=== PATIENT | female | born 1980 ===

== ENCOUNTER 2024-01-12 00:33 | Day surgery (SDC) | payer OTHER, SELFPAY ==
--- NOTE | 2024-01-03 07:21 | PM.HPGS ---
History of Present Illness History of Present Illness Consent: Risks, benefits, and alternatives have been discussed and questions answered. Patient agrees to proceed with procedure. Chief complaint: left kidney stone Narrative: Eva Rosa is a 43 year old female who is an inmate at [facility]. She had a recent renal ultrasound that suggested bilateral renal calculi. KUB showed a 3 mm calcified stone in her right kidney and 8 mm calcified stone in her left kidney. After discussion of therapeutic options she is elected for left ESWL. She is aware of the risks including, but not limited to, adverse cardiopulmonary events, need for additional procedures, hematuria and perinephric hematoma. Review of Systems Review of Systems: All systems reviewed & are unremarkable except as noted in HPI and below Exam Const: General: no acute distress Resp: Effort & Inspection: normal respiratory effort GI: Inspection: non-distended GI Palp: No abdominal tenderness and No Guarding due to palpation present (GI) Auscultation: normal bowel sounds Assessment and Plan Assessment and plan (1) Bilateral kidney stones: Code(s): N20.0 - Calculus of kidney Status: Acute Assessment and Plan: Left ESWL
[2024-01-03 12:39] VITALS: BMI 29.8
--- NOTE | 2024-01-03 12:59 | PC.NURSE ---
Addendum entered by Nathan Nguyen RN 01/03/24 16:48: Also need BMP prior to surgery due to diuretic use. Notified Bryanna Monet. Original Note: Report to entrance [address] to right of the green pavilion located off [facility], at time _0600_ on date _[id number]_. Planned Procedure Time: _07_. Time changes happen often and if your time is changed the preop area will call you the afternoon before. - You and your visitor will be asked to self-screen and do not enter if you have any COVID symptoms. - A mask is optional within the hospital at this time. Patients may have clear liquids (water, carbonated beverages, clear teas, apple juice) until 3 hours prior to surgery with a maximum of 20 ounces. - No food from midnight until time of surgery Take the following medications with a SIP of water the morning of surgery: ___Carvedilol DO NOT STOP ANY OF YOUR OTHER PRESCRIPTION MEDICATIONS PRIOR TO SURGERY ?EXCEPT THE FOLLOWING Medications to discontinue per physician ____None Date to take last dose Please no make-up, nail nauruan, hairspray, perfume, deodorant, or body powder the day of surgery. No jewelry (including any body piercings) or valuables the day of surgery, leave them at home. Please take a shower or bath the night before, or the morning of, surgery with an antibacterial soap. Wear comfortable, loose fitting clothing. - Jewelry must be removed prior to entering the operating room. Rings and piercings that are not removed may be cut off. - The hospital will not accept responsibility for valuables. - Please leave all valuables, including medications, at home the day of surgery. If you are going home after surgery, a licensed water truck driver must drive you home. - NO public transportation without another adult if you receive anesthesia. - We recommend that an adult stay with you for 24 hours following discharge. - We also recommend that you do not drive, make important decision, drink alcoholic beverages, or take any drugs that were not prescribed by your health care provider for at least 24 hours after your discharge time. Follow any additional instructions given to you from your surgeon. If you or anyone in your household have experienced Covid symptoms in the past week, please notify your surgeon or the nurse liaison at the phone number below for possible testing. Telephone instructions given to __Bryanna Monet__and asked if any additional questions and then verbalized understanding. Patient advised to call surgeon office or pre surgery nurse liaison [phone] if any additional questions. After reviewing history and medications what we need currently for Eva is and EKG, Urine culture, PT and PTT. Let us know if this is a problem and we can do them day of stay if we have to.
--- NOTE | 2024-01-11 15:03 | P.PNAN_ITS ---
Anes - Initial Pre Proc Eval Procedure: Operation Date: 01/12/24 07:30 Proposed Procedures p Left Extracorporeal Shock Wave Lithotripsy - Augustin Neri MD Date/Time: 01/11/24 15:03 Surgeon: Augustin Neri MD Pre Op Diagnosis: left kidney stone Patient Data Age: 43 Gender: F Height: 1.73 m Weight: 89 kg Allergies Allergy/AdvReac Type Severity Reaction Status Date / Time No Known Allergies Allergy Verified 01/12/24 06:26 Home Medications Medication Instructions Recorded Confirmed Type acetaminophen 325 mg tablet 325 mg PO BID PRN Pain 01/03/24 01/12/24 History atorvastatin 40 mg tablet 40 mg PO DAILY 01/03/24 01/12/24 History carvedilol 6.25 mg tablet 6.25 mg PO BID 01/03/24 01/12/24 History chlorthalidone 25 mg tablet 12.5 mg PO DAILY 01/03/24 01/12/24 History losartan 100 mg tablet 100 mg PO DAILY 01/03/24 01/12/24 History Patient hx anesthesia problems: none Family hx anesthesia problems: none Results Review: All pre-operative results and documents have been reviewed as part of the pre- operative evaluation. [facility] Past Medical History Medical History (Updated 01/12/24 @ 07:02 by Kenji Huff DO) Cardiomyopathy GERD (gastroesophageal reflux disease) History of heart attack 2016 - no intervention Hyperlipidemia Hypertension Social History Social History Substance use: former Substance use type: marijuana and amphetamines Other substance usage details: Incarcerated since jun 2023 Living arrangements: incarcerated Anes - Eval Final PreProcedure Day of Procedure 01/11/24 15:03 Patient weight: obese Heart: regular rate and rhythm Lungs: clear to auscultation Airway: Mallampati scale class II Neurological: alert and oriented Last oral intake: >/= 8 hours ASA classification: III Emergent: no Anesthetic plan: proceed Anesthesia type and monitoring: general LMA and standard monitoring Results Review: All pre-operative results and documents have been reviewed as part of the pre- operative evaluation. Informed Consent: The patient's anesthetic plan and its attendant risks and benefits were discussed with the patient/family/POA. Questions were solicited and answers provided to the satisfaction of the patient/family/POA.
[2024-01-12] VITALS (8 sets, daily range): BP systolic 108–120; BP diastolic 70–80; PULSE 56–69; RESP 16–20; TEMP 36.3; O2SAT 99–100
--- NOTE | ~2024-01-12 | XR_ITS ---
Supine and upright views of the abdomen Clinical history: Lithotripsy Findings: Bowel gas pattern is nonspecific. No evidence for obstruction or free air. 12 mm left renal stone present. 10 mm right renal stone present. Osseous structures are intact. Impression: Bilateral nephrolithiasis, as above. Reviewed, dictated and finalized at [facility]. Impression: Bilateral nephrolithiasis, as above.
--- NOTE | 2024-01-12 05:54 | ECG_ITS ---
Test Date: 2024-01-12 07:13:59 Measurements Intervals [place] Rate: 51 P: 21 GA: 161 QRS: 43 QRSD: 98 T: 33 QT: 450 QTc: 417 Interpretive Statements SINUS BRADYCARDIA BORDERLINE ST ABNORMALITY- DIFFUSE LEADS BASELINE ARTIFACT- I, II, AVR BORDERLINE ECG No previous ECG available for comparison Electronically Signed On 01-12-2024 07:21:06 CDT by Moe Russell D.O.
--- NOTE | 2024-01-12 06:21 | WPDHPUPDATE1 ---
History and Physical Update Update Date/Time: 01/12/24 06:21 History and Physical has been reviewed, including an updated exam of the patient. There are NO changes in the patient's condition. Risks, benefits, and alternatives have been discussed and questions answered. Patient agrees to proceed with procedure.
[2024-01-12 06:26] LABS: Appearance Urine Cloudy (Clear); Bacteria Urine 2+ /hpf; Bilirubin Urine Negative (Negative); Blood Urine 1+ (Negative); Color Urine Yellow (Yellow); Glucose Urine UA Negative (Negative); Ketones Urine Negative (Negative); Leukocyte Esterase Ur 2+ LEU/UL (Negative); Nitrate Urine Negative (Negative); Non Pathogenic Casts 0-2; Protein Urine Negative (Negative); RBC Urine 21-50 /hpf (0-2); Specific Grav Ur 1.018 (1.001-1.035); Squamous Epithelial Cell Urine Moderate /hpf (Few); WBC Urine 21-50 /hpf (0-3)
[2024-01-12 06:31] LABS: Add Urine Microscopic? YES
[2024-01-12] MEDS: LACTATED RINGERS 1,000 ML 30 ML IV CONT ×2 (06:42→08:39)
[2024-01-12 06:57] LABS: Prothrombin Time 13.4 Seconds (11.1-14.7)
[2024-01-12 06:58] LABS: Partial Thromboplastin Time 29.1 Seconds (22.3-36.8)
[2024-01-12 07:03] LABS: Anion Gap 9 mmol/L (4-12); Blood Urea Nitrogen 15 mg/dL (7-17); Carbon Dioxide 29 mmol/L (22-30); Chloride 103 mmol/L (98-107); Estimated CRCL calculation 92 ml/min; Estimated Glomerular Filt Rate > 60; Glucose 106 mg/dL (65-110); Potassium 3.7 mmol/L (3.4-5.0); Sodium 141 mmol/L (137-145)
[2024-01-12] MEDS: ceFAZolin 2 GM/D5W 50 ML 2 GM/50 ML BAG IVPB (07:25)
--- NOTE | 2024-01-12 07:45 | SUR.OPER ---
NO ONE TO CALL FOR UPDATES PER PATIENT. [facility] PHONE NUMBER ON CHART AND GIVEN TO SURGEON.
--- NOTE | 2024-01-12 07:55 | W.PM.PROC2 ---
Procedure Note - Detailed Date of Procedure 01/12/24 Pre-op Diagnosis Bilateral kidney stone Post-op Diagnosis Same Procedure Performed Left ESWL Surgeon Augustin Neri MD Anesthesia General Description of Procedure The patient was brought to the operative suite where she was placed in the supine position on the Dornier lithotripsy table. The focal point of the lithotripter was placed at a 8mm left renal calculus. A total of 2500 shocks were delivered at a power setting of 4. There appeared to be good fragmentation of the stone. The patient tolerated the procedure well and was taken to the recovery room in good condition. Drains No Packing No Pathology None sent Complications No immediate complications Condition Stable
== END 2024-01-12 09:51 | disposition home or self-care (01) ==
PROVIDERS: PCP Internal Medicine; Visit Provider Urology
PROC: (CPT 50590; principal; 2024-01-12 07:30)
DX: N20.0 Calculus of kidney (principal); I10 Essential (primary) hypertension; E78.5 Hyperlipidemia, unspecified; I42.9 Cardiomyopathy, unspecified; K21.9 Gastro-esophageal reflux disease without esophagitis; I25.2 Old myocardial infarction; E66.9 Obesity, unspecified; Z68.30 Body mass index [BMI] 30.0-30.9, adult; Z87.891 Personal history of nicotine dependence
CPT/HCPCS: 50590; 36415; 74018; 80048; 81001; 85610; 85730; 87086; 93005; J0690; J1100; J2250; J2405; J2704; J3010; J7030; J7120